=== PATIENT | female | born 1995 | race Caucasian/White ===

== ENCOUNTER 2021-03-03 03:39 | Inpatient (IN) ==
[2021-03-03 04:11] LABS: Bacteria,Urine Occasional /HPF (Few); Bilirubin,Urine Negative (Negative); Blood, Urine Negative (Negative); Glucose,Urine (UA) Negative (Negative); Ketones,Urine 80 mg/dL (Negative); Mucus,Urine Many /LPF (Occasional); Nitrite,Urine Negative (Negative); Protein,Urine 100 MG/DL; RBC,Urine 3 /HPF (0-4); Squamous Epithelial Cell,Urine Few /HPF (0-10); Urine Appearance Slightly Hazy (Clear); Urine Color Amber (Yellow); Urine Specific Gravity 1.029 (1.001-1.035); Urine Urobilinogen < 2.0 EU/DL (0.2-1.0); WBC,Urine 38 /HPF (0-6)
[2021-03-03] MEDS ORDERED: BUTORPHANOL 2 MG/ML VIAL IV PRN (07:54)
[2021-03-03] MEDS ORDERED: ONDANSETRON 4 MG/2 ML VIAL IV PRN ×2 (07:54→15:50)
[2021-03-03] MEDS ORDERED: LACTATED RINGERS 1,000 ML IV SCH (08:00)
[2021-03-03 08:23] LABS: Basophils % 0.1 % (0.0-0.8); Hemoglobin 13.7 GM/DL (12.0-16.0); Immature Granulocytes % 0.5 %; Immature Granulocytes Absolute 0.07 #; Lymphocytes # 0.9 10*3/uL (1.4-4.0); Lymphocytes % 6.3 % (21.3-54.2); Mean Corpuscular HGB Conc 36.1 GM/DL (32-36); Mean Corpuscular Volume 93.1 FL (87-102); Mean Platelet Volume 9.9 FL (9.6-12.0); Monocytes % 2.5 % (1.7-12.7); Neutrophils % 90.6 % (38.7-73.9); Platelet Count 225 T/CUMM (130-400); Red Blood Count 4.08 MC/CUMM (3.8-5.5); Red Cell Distribution Width 11.5 % (9.3-17.3); White Blood Count 14.1 T/CUMM (4-12)
[2021-03-03 08:48] LABS: Albumin 2.9 G/DL (3.4-5.0); Bilirubin,Total 0.4 MG/DL (0.2-1.0); Calcium 9.1 MG/DL (8.5-10.1); Osmolality,Calculated 263.4 MOS/KG (273-304); Potassium 3.8 MMOL/L (3.5-5.1)
[2021-03-03 08:50] LABS: Lymphocytes 5 % (20-55); Segmented Neutrophils 91 % (50-85); Total Cells Counted 100
[2021-03-03 08:51] LABS: Microcytosis Slight; Platelet Estimate Normal
[2021-03-03] MEDS ORDERED: miSOPROStoL 200 MCG TABLET ONE (10:13)
[2021-03-03] MEDS ORDERED: METHYLERGONOVINE 0.2 MG/1 ML AMP ONE (10:13)
[2021-03-03] MEDS ORDERED: OXYTOCIN/LR 20 UNIT/1,000 ML BAG IV ONE ×2 (10:13→15:50)
[2021-03-03] MEDS ORDERED: TRANEXAMIC ACID 1,000 MG/10 ML VIAL ONE (10:13)
[2021-03-03] MEDS ORDERED: CARBOPROST TROMETHAMINE 250 MCG/ML AMP IM ONE (10:14)
[2021-03-03] MEDS ORDERED: LIDOCAINE 1% 50 ML VIAL ONE (13:58)
[2021-03-03] MEDS ORDERED: ACETAMINOPHEN 325 MG TABLET PO PRN (15:50)
[2021-03-03] MEDS ORDERED: BISACODYL 10 MG SUPP RECTAL PRN (15:50)
[2021-03-03] MEDS ORDERED: RHO(D) IMMUNE GLOBULIN 300 MCG SYRINGE IM ONE (15:50)
[2021-03-03] MEDS ORDERED: WITCH HAZEL PADS 100/JAR TOP PRN (15:50)
[2021-03-03] MEDS ORDERED: LANOLIN 50% CREAM 0.3 OZ TUBE TOP PRN (15:50)
[2021-03-03] MEDS ORDERED: MEASLES/MUMPS/RUBELLA VACCINE 0.5 ML VIAL SUBCUT ONE (15:50)
[2021-03-03] MEDS ORDERED: oxyCODONE/ACETAMINOPHEN 5-325 MG TABLET PO PRN ×2 (15:50)
[2021-03-03] MEDS ORDERED: BENZOCAINE 20%/MENTHOL 0.5% SPRAY 56 GM CAN TOP PRN (15:50)
[2021-03-03] MEDS ORDERED: HYDROCORTISONE 2.5% RECTAL CREAM 30 GM TUBE TOP PRN (15:50)
[2021-03-03] MEDS ORDERED: DIPH/TET/ACEL PERT BOOSTER VACCINE 0.5 ML VIAL IM ONE (15:50)
[2021-03-03 16:14] LABS: Cord Venous Blood HCO3 17.9 MMOL/L; Cord Venous Blood PCO2 40.1 MMHG; Cord Venous Blood PO2 28.2
[2021-03-03] MEDS: DOCUSATE SODIUM 100 MG CAPSULE PO SCH (21:36)
[2021-03-03] MEDS: IBUPROFEN 800 MG TABLET PO PRN (21:57)
[2021-03-04 05:25] LABS: Basophils % 0.1 % (0.0-0.8); Hematocrit 33.8 VOL% (35.7-47.0); Hemoglobin 11.7 GM/DL (12.0-16.0); Immature Granulocytes % 0.4 %; Immature Granulocytes Absolute 0.05 #; Lymphocytes % 14.9 % (21.3-54.2); Mean Corpuscular HGB Conc 34.6 GM/DL (32-36); Mean Corpuscular Volume 96.8 FL (87-102); Mean Platelet Volume 9.9 FL (9.6-12.0); Monocytes % 8.6 % (1.7-12.7); Platelet Count 200 T/CUMM (130-400); Red Blood Count 3.49 MC/CUMM (3.8-5.5); Red Cell Distribution Width 11.7 % (9.3-17.3); White Blood Count 13.7 T/CUMM (4-12)
[2021-03-04] MEDS: IBUPROFEN 800 MG TABLET PO PRN ×2 (07:05→19:57)
[2021-03-04] MEDS: DOCUSATE SODIUM 100 MG CAPSULE PO SCH ×2 (08:52→20:21)
[2021-03-05 09:05] VITALS: BP 128/74
[2021-03-05] MEDS: DOCUSATE SODIUM 100 MG CAPSULE PO SCH (10:25)
[2021-03-05] MEDS: IBUPROFEN 800 MG TABLET PO PRN (10:27)
== END 2021-03-05 11:30 | disposition home or self-care (01) | DRG 807 ==
LOC: N.LDOUT 03:39 → N.LD 03:40 → N.OB 20:40
PROVIDERS: ADMIT Obstetrics & Gynecology; ATTEND Obstetrics & Gynecology

== ENCOUNTER 2022-11-20 07:51 | Inpatient (IN) ==
[2022-11-20] MEDS ORDERED: TRANEXAMIC ACID 1,000 MG in SODIUM CHLORIDE 0.9% 100 ML IV PRN (08:03)
[2022-11-20] MEDS ORDERED: MEPERIDINE 25 MG/1 ML VIAL IV PRN (08:03)
[2022-11-20] MEDS ORDERED: miSOPROStoL 200 MCG TABLET RECTAL PRN (08:03)
[2022-11-20] MEDS ORDERED: OXYTOCIN/LR 20 UNIT/1,000 ML BAG IV ONE ×3 (08:03→09:14)
[2022-11-20] MEDS ORDERED: ONDANSETRON 4 MG/2 ML VIAL IV PRN ×2 (08:03→09:14)
[2022-11-20] MEDS ORDERED: BUTORPHANOL 2 MG/ML VIAL IV PRN (08:03)
[2022-11-20] MEDS ORDERED: METHYLERGONOVINE 0.2 MG/1 ML AMP IM PRN (08:03)
[2022-11-20] MEDS ORDERED: CARBOPROST TROMETHAMINE 250 MCG/ML AMP IM PRN (08:03)
[2022-11-20] MEDS ORDERED: SODIUM CHLORIDE 0.9% 0 ML IV ONE (08:11)
[2022-11-20] MEDS ORDERED: TRANEXAMIC ACID 1,000 MG/10 ML VIAL ONE (08:11)
[2022-11-20] MEDS ORDERED: miSOPROStoL 200 MCG TABLET ONE (08:11)
[2022-11-20] MEDS ORDERED: CARBOPROST TROMETHAMINE 250 MCG/ML AMP IM ONE (08:12)
[2022-11-20] MEDS ORDERED: METHYLERGONOVINE 0.2 MG/1 ML AMP ONE (08:12)
[2022-11-20] MEDS ORDERED: OXYTOCIN 10 UNIT/ML VIAL ONE (08:29)
[2022-11-20] MEDS ORDERED: OXYTOCIN 10 UNIT/ML VIAL IM ONE (08:29)
[2022-11-20] MEDS ORDERED: LACTATED RINGERS 1,000 ML IV SCH (08:30)
[2022-11-20] MEDS ORDERED: OXYTOCIN/LR 20 UNIT/1,000 ML BAG IV SCH (08:30)
[2022-11-20 08:31] LABS: Basophils % 0.2 % (0.0-0.8); Eosinophils % 0.1 % (0.00-10.9); Hematocrit 40.9 VOL% (35.7-47.0); Hemoglobin 14.4 GM/DL (12.0-16.0); Immature Granulocytes % 0.3 %; Immature Granulocytes Absolute 0.05 #; Lymphocytes # 1.5 10*3/uL (1.4-4.0); Lymphocytes % 9.1 % (21.3-54.2); Mean Corpuscular HGB Conc 35.2 GM/DL (32-36); Mean Corpuscular Volume 93.2 FL (87-102); Mean Platelet Volume 9.7 FL (9.6-12.0); Monocytes # 0.8 10*3/uL (0.11-0.8); Monocytes % 4.7 % (1.7-12.7); Neutrophils % 85.6 % (38.7-73.9); Platelet Count 268 T/CUMM (130-400); Red Blood Count 4.39 MC/CUMM (3.8-5.5); Red Cell Distribution Width 11.9 % (9.3-17.3); White Blood Count 16.1 T/CUMM (4-12)
[2022-11-20 08:41] LABS: Cord Venous Blood HCO3 19.8 MMOL/L; Cord Venous Blood PCO2 50.1 MMHG; Cord Venous Blood PO2 27.4
[2022-11-20] MEDS ORDERED: BISACODYL 10 MG SUPP RECTAL PRN (09:14)
[2022-11-20] MEDS ORDERED: RHO(D) IMMUNE GLOBULIN 300 MCG SYRINGE IM ONE (09:14)
[2022-11-20] MEDS ORDERED: oxyCODONE/ACETAMINOPHEN 5-325 MG TABLET PO PRN (09:14)
[2022-11-20] MEDS ORDERED: HYDROCORTISONE 2.5% RECTAL CREAM 30 GM TUBE TOP PRN (09:14)
[2022-11-20] MEDS ORDERED: WITCH HAZEL PADS 100/JAR TOP PRN (09:14)
[2022-11-20] MEDS ORDERED: ACETAMINOPHEN 325 MG TABLET PO PRN (09:14)
[2022-11-20] MEDS ORDERED: DIPH/TET/ACEL PERT BOOSTER VACCINE 0.5 ML VIAL IM ONE (09:14)
[2022-11-20] MEDS ORDERED: LANOLIN 50% CREAM 0.3 OZ TUBE TOP PRN (09:14)
[2022-11-20] MEDS ORDERED: MEASLES/MUMPS/RUBELLA VACCINE 0.5 ML VIAL SUBCUT ONE (09:14)
[2022-11-20] MEDS ORDERED: IBUPROFEN 800 MG TABLET PO ONE (09:47)
[2022-11-20] MEDS: DOCUSATE SODIUM 100 MG CAPSULE PO SCH ×2 (12:53→20:57)
[2022-11-20] MEDS: BENZOCAINE 20%/MENTHOL 0.5% SPRAY 56 GM CAN TOP PRN (12:56)
[2022-11-20] MEDS: IBUPROFEN 800 MG TABLET PO PRN (17:44)
[2022-11-20] MEDS ORDERED: DOCUSATE SODIUM 100 MG CAPSULE PO SCH (21:00)
[2022-11-21] MEDS: IBUPROFEN 800 MG TABLET PO PRN ×2 (02:56→20:18)
[2022-11-21 06:13] LABS: Basophils % 0.3 % (0.0-0.8); Eosinophils # 0.1 10*3/uL (0.0-0.87); Eosinophils % 0.6 % (0.00-10.9); Hematocrit 36.7 VOL% (35.7-47.0); Hemoglobin 12.3 GM/DL (12.0-16.0); Immature Granulocytes % 0.3 %; Immature Granulocytes Absolute 0.03 #; Lymphocytes % 22.4 % (21.3-54.2); Mean Corpuscular HGB Conc 33.5 GM/DL (32-36); Mean Corpuscular Volume 96.3 FL (87-102); Mean Platelet Volume 9.6 FL (9.6-12.0); Monocytes # 0.5 10*3/uL (0.11-0.8); Monocytes % 5.8 % (1.7-12.7); Neutrophils % 70.6 % (38.7-73.9); Platelet Count 178 T/CUMM (130-400); Red Blood Count 3.81 MC/CUMM (3.8-5.5); Red Cell Distribution Width 12.1 % (9.3-17.3)
[2022-11-21] MEDS: DOCUSATE SODIUM 100 MG CAPSULE PO SCH ×2 (08:22→21:14)
[2022-11-21] MEDS ORDERED: MULTIVITAMIN (PRENATAL) TABLET PO SCH (09:00)
[2022-11-22 07:25] VITALS: BP 109/69
[2022-11-22] MEDS: BENZOCAINE 20%/MENTHOL 0.5% SPRAY 56 GM CAN TOP PRN (08:03)
[2022-11-22] MEDS: IBUPROFEN 800 MG TABLET PO PRN (08:04)
[2022-11-22] MEDS: DOCUSATE SODIUM 100 MG CAPSULE PO SCH (08:04)
== END 2022-11-22 10:55 | disposition home or self-care (01) | DRG 807 ==
LOC: N.LD 07:51 → N.OB 12:07
PROVIDERS: ADMIT Obstetrics & Gynecology; ATTEND Obstetrics & Gynecology